=== PATIENT | female | born 1990 ===

== ENCOUNTER 2021-07-26 09:11 | Emergency (ER) | payer MEDICAID, OTHER ==
[~2021-07-26] VITALS: Ht 157.5 cm; Wt 73.0 kg
[2021-07-26 09:15] VITALS: BP 130/94
[2021-07-26 10:03] LABS: BASOPHILS % 0.5 % (0.0-2.0); HEMATOCRIT. 36.6 % (36.0-48.0); HEMOGLOBIN. 11.5 g/dL (12.0-16.0); LYMPHOCYTES % 29.4 % (20.0-50.0); MEAN CORPUSCULAR HEMOGLOBIN 21.3 pg (28.0-32.0); MEAN PLATELET VOLUME 8.4 fl (7.4-10.4); MONOCYTES % 4.6 % (2.0-8.0); NEUTROPHILS % 63.5 % (40.0-76.0); PLATELET 252 x1000/uL (130-400); RED BLOOD CELL COUNT 5.39 mill/uL (4.2-5.4); RED CELL DISTRIBUTION WIDTH 20.9 % (11.6-14.6)
[2021-07-26 10:15] LABS: CHLORIDE 106 mEq/L (98-107)
[2021-07-26] MEDS ORDERED: ONDANSETRON HCL 4MG/2ML INJ IV ONE (10:15)
[2021-07-26 10:25] LABS: HCG SCREEN NEGATIVE
[2021-07-26 10:41] LABS: PLATELET ESTIMATE NORMAL
[2021-07-26] MEDS ORDERED: ONDANSETRON HCL 4MG/2ML INJ ONE (12:22)
[2021-07-26 12:27] LABS: CLARITY URINE CLEAR (CLEAR); COLOR URINE YELLOW (YELLOW); KETONES URINE NEGATIVE (NEGATIVE); LEUKOCYTE ESTERASE URINE NEGATIVE (NEGATIVE); NITRITE URINE NEGATIVE (NEGATIVE); OCCULT BLOOD URINE NEGATIVE (NEGATIVE); PROTEIN URINE NEGATIVE (NEGATIVE); SPECIFIC GRAVITY URINE 1.011 (1.005-1.030); UROBILINOGEN URINE 0.2 E.U./dL (0.2-1.0)
== END 2021-07-26 15:30 | disposition home or self-care (01) ==
LOC: ER 09:52
DX: R11.2 Nausea with vomiting, unspecified (principal); M79.602 Pain in left arm
CPT/HCPCS: 36415; 70496; 70498; 71045; 80053; 81003; 83690; 83880; 84484; 84703; 85025; 93005; 93971; 96374; 99285; J2405